=== PATIENT | male | born 1945 | race Two or more races ===

== ENCOUNTER 2017-04-24 12:13 | Emergency (ER) | payer OTHER ==
[~2017-04-24] VITALS: Ht 165.1 cm; Wt 75.4 kg
[~2017-04-24 12:13] MED LIST: BAYER ASPIRIN R81 MG PO; GLU500 PO; METOPROLOL TART25 M1 PO; MEV20 PO; PRI20 PO; ZES20 PO
[2017-04-24 12:37] VITALS: Ht 165.1 cm; Wt 75.4 kg
[2017-04-24 14:59] LABS: microscopic required? NO
[2017-04-24 15:09] LABS: urine erythrocyte NEGATIVE (NEGATIVE)
[2017-04-24 17:35] VITALS: BP 149/99
== END 2017-04-24 17:35 | disposition home or self-care (01) ==
LOC: ED 12:13
PROVIDERS: Emergency Medicine
DX: M51.37 Other intervertebral disc degeneration, lumbosacral region (principal); E78.00 Pure hypercholesterolemia, unspecified; F17.210 Nicotine dependence, cigarettes, uncomplicated; I10 Essential (primary) hypertension; J45.909 Unspecified asthma, uncomplicated
CPT/HCPCS: 99406; J1100; J1885; J7030

== ENCOUNTER 2017-06-28 17:52 | Emergency (ER) | payer OTHER ==
[~2017-06-28] VITALS: Ht 175.3 cm; Wt 74.8 kg
[2017-06-28 18:06] VITALS: Ht 175.3 cm; Wt 74.8 kg
[2017-06-28 21:32] LABS: microscopic required? NO
[2017-06-28 21:40] LABS: UA SPECIFIC GRAVITY 1.025 (1.005-1.035); urine erythrocyte NEGATIVE (NEGATIVE)
[2017-06-28 21:46] LABS: BASOPHIL % 0.8 % (0-2); PLATELET COUNT 159 x10^3mcL (130-400); RED CELL DISTRIBUTION WIDTH 13.6 % (11.5-14.5)
[2017-06-28 22:23] LABS: CALCIUM 7.6 mg/dL (8.5-10.1); CHLORIDE SERUM 102 mmol/L (98-107); CREATININE SERUM 0.9 mg/dL (0.7-1.3); GFR1 > 60 mL/min; GLUCOSE SERUM 126 mg/dL (74-106); POTASSIUM SERUM 3.4 mmol/L (3.5-5.1); SODIUM SERUM 137 mmol/L (136-145)
[2017-06-28 22:37] LABS: ALKALINE PHOSPHATASE 51 U/L (46-116); ALT/SGPT 24 U/L (16-63); AST/SGOT 14 U/L (15-37); BILIRUBIN TOTAL 0.3 mg/dL (0.20-1.00); CK-MB 0.5 ng/mL (0-3.6); TOTAL PROTEIN, SERUM 6.7 g/dL (6.4-8.2)
[2017-06-28 22:38] LABS: ALBUMIN 3.3 g/dL (3.4-5.0)
[2017-06-28 23:48] VITALS: BP 156/86
== END 2017-06-28 23:29 | disposition home or self-care (01) ==
LOC: ED 17:52
PROVIDERS: Emergency Medicine
DX: J20.9 Acute bronchitis, unspecified (principal); J45.909 Unspecified asthma, uncomplicated; I10 Essential (primary) hypertension
CPT/HCPCS: 83880; 87804; J1885; J7030

== ENCOUNTER 2017-07-03 13:17 | Emergency (ER) | payer OTHER ==
[~2017-07-03] VITALS: Ht 170.2 cm; Wt 74.4 kg
[2017-07-03 15:05] VITALS: BP 162/88
== END 2017-07-03 15:05 | disposition home or self-care (01) ==
LOC: ED 13:17
DX: B34.9 Viral infection, unspecified (principal); Z02.79 Encounter for issue of other medical certificate; E78.00 Pure hypercholesterolemia, unspecified; I10 Essential (primary) hypertension